=== PATIENT | female | born 1960 | race Caucasian/White ===

== ENCOUNTER 2016-09-10 06:37 | Day surgery (SDC) | payer MEDICAID, OTHER ==
[~2016-09-10 06:37] MED LIST: Dextrose 5%-0.45% NaCl 1,000 ML IV SCH; Midazolam 1 MG/ML 2 ML SDV ONE; fentaNYL 100 MCG/2 ML SDV ONE
[2016-09-10] MEDS ORDERED: Sodium Chloride 0.9% 10 ML Syringe FLUSH PRN (07:00)
[2016-09-10] MEDS ORDERED: fentaNYL 100 MCG/2 ML SDV IV ONE ×5 (08:09→16:38)
[2016-09-10] MEDS ORDERED: Midazolam 1 MG/ML 2 ML SDV IV ONE ×7 (08:10→16:38)
--- NOTE | 2016-09-10 09:05 | OR ---
DATE: 09/10/2016 PROCEDURE: Total colonoscopy. INSTRUMENT USED: PCF-H180AL Olympus video colonoscope. PREMEDICATIONS: Fentanyl 150 mcg intravenous, Versed 4 mg intravenous. Nasal O2 cannula. The procedure was done under pulse oximetry, BP recording, and monitor car operator. INDICATION: The patient with persistent diarrhea and rectal bleeding unexplained, history of previous colonic polyp. Colonoscopic examination is done for detection of any polypoid lesions and removal, endoscopic hemostasis therapy if needed. DESCRIPTION OF PROCEDURE: Initial rectal exam showed external hemorrhoidal tags. Rigid anoscopy showed pigmentation of rectal mucosa. The colonoscope was passed with ease. Photographs were taken of the rectum showing melanosis coli. Numerous scattered diverticula were noted in the distal left colon along with deformity. The colon was found to be tortuous and redundant. The scope was passed with ease up to the ileocecal area, photographs were taken of the cecum showing melanosis coli. No bleeding was noted from any of the visualized areas at the commencement of the examination. No stricture. No vascular ectasia. No large isolated ulcerations seen. No evidence of diffuse inflammatory bowel disease in the form of friability, contact bleeding, or ulcerations. No polyp or tumor mass identified. Probing the proximal sides of folds and flexures, using adequate distention and clearing up the stool material, withdrawal of the scope was made, cecum to rectum time over 6 minutes. No bleeding was noted from any of the visualized areas at the completion of examination. IMPRESSION: 1. External hemorrhoids. 2. Melanosis coli. 3. Diverticulosis. The patient tolerated the procedure well. [facility] /[id number]
[2016-09-10 14:00] VITALS: BP 136/78
== END 2016-09-10 11:30 | disposition home or self-care (01) ==
LOC: DL.ENDO 06:37
PROVIDERS: ATTEND Internal Medicine Gastroenterology
DX: K57.30 Diverticulosis of large intestine without perforation or abscess without bleeding (principal); K64.4 Residual hemorrhoidal skin tags; K63.89 Other specified diseases of intestine; Z98.890 Other specified postprocedural states; Z79.82 Long term (current) use of aspirin; Z79.899 Other long term (current) drug therapy
CPT/HCPCS: 45378; J2250; J3010; J7042